=== PATIENT | male | born 1990 | race African-American/Black ===

== ENCOUNTER 2021-09-12 08:46 | Emergency (ER) | payer SELFPAY ==
[~2021-09-12] VITALS: Ht 172.7 cm; Wt 74.8 kg
--- NOTE | 2021-09-12 09:09 | NUR ---
To ER bed 11, c/o wound,medial aspect of right hand, injury sustained at 10 pm last night, aaox3, breathing even and non labored, awaiting md scales
[2021-09-12] MEDS ORDERED: LIDOCAINE HCL/MPF 1% 30 ML VIAL IJ ONE (09:23)
[2021-09-12] MEDS ORDERED: CEPHALEXIN MONOHYDRATE 500 MG CAPSULE PO ONE ×2 (11:00→11:10)
[2021-09-12] MEDS ORDERED: TDAP [DIPH/PERTUSSIS/TET] 0.5 ML VIAL IM ONE ×2 (11:10→11:30)
[2021-09-12] MEDS ORDERED: CEPH500C2 PO (11:14)
[2021-09-12 11:23] VITALS: BP 137/74
--- NOTE | 2021-09-12 11:23 | NUR ---
Patient discharged to home in stable condition. Written and verbal after care instructions given. Patient verbalizes understanding of instruction.
== END 2021-09-12 11:23 | disposition home or self-care (01) ==
LOC: ER 08:55
DX: S61.310A Laceration without foreign body of right index finger with damage to nail, initial encounter (principal); W25.XXXA Contact with sharp glass, initial encounter; Y93.89 Activity, other specified; Y92.89 Other specified places as the place of occurrence of the external cause; Y99.8 Other external cause status
CPT/HCPCS: 12002; 99283; J3490; 90715